=== PATIENT | female | born 1935 | race Caucasian/White ===

== ENCOUNTER 2016-08-24 11:53 | Emergency (ER) | payer MEDICARE, BC ==
[~2016-08-24 11:53] MED LIST: CIPRO PO; COUMADIN5 MG PO; DIOVAN PO; DIOVAN80 M1 PO; LORTAB 10/500 T1 TAB PO; LOVENOX SUBQ; PRAVASTATIN SOD20 MG PO; ZETIA PO
== END 2016-08-24 12:59 | disposition home or self-care (01) ==
LOC: CFTX 11:53
DX: S61.211A Laceration without foreign body of left index finger without damage to nail, initial encounter (principal); I10 Essential (primary) hypertension; Z86.718 Personal history of other venous thrombosis and embolism; Z86.711 Personal history of pulmonary embolism; Z87.891 Personal history of nicotine dependence; W26.8XXA Contact with other sharp object(s), not elsewhere classified, initial encounter
CPT/HCPCS: 12001; 90471; 90715; 99283

== ENCOUNTER → 2016-12-28 | Outpatient (CLI) | payer MEDICARE, BC ==
--- NOTE | ~2016-12-28 | CR184 ---
[facility] A Service of [facility] & [facility] RADIOLOGY TEXT RESULTS PATIENT: IMELDA AMARAL LOCATION: [facility] : 31 UNIT #: [id number] AGE: [address]: SHAHID HAMILTON MD SEX: F ORDER DR: [id number] [facility] [address] [place], [place] [address] [id number] O MR#: [id number] Acc #: [id number] NAME: IMELDA AMARAL : 1935 SEX: F STUDY DATE/TIME: 12/28/2016 10:32 UNIT: [facility] ROOM: STUDY DESCRIPTION: CR Lumbar Spine Min 4 Views Attending Physician: Shahid Hamilton M.D. Referring Physician: Shahid Hamilton M.D. Ordering Physician: Shahid Hamilton M.D. Primary Care Physician: Shahid Hamilton M.D. MEDICAL IMAGING REPORT This report is preliminary unless electronic signature is present EXAM Lumbar spine series 3 views 12/28/2016 COMPARISON 02/10/2015. HISTORY Low back pain radiating down both legs for 3 months. FINDINGS There is a grade 1 anterolisthesis of L4-L5. There is slight levoscoliosis. There is mild degenerative change and there is osteopenia. There is no fracture or acute abnormality. Anterolisthesis at L4-L5 is probably slightly increased since the prior study of January 2015. IMPRESSION Degenerative changes, including grade 1 anterolisthesis of L4-L5, slightly increased since the study of 02/10/2015. Dictated by... Giovanny Esquivel M.D. THIS IS AN ELECTRONICALLY VERIFIED REPORT Giovanny Esquivel M.D. at 12/31/2016 4:53 PM TEV/pcl TD: 12/28/2016 19:22 JOB #: [id number] MEDICAL IMAGING REPORT Page 1 of 1 COPY
== END | disposition home or self-care (01) ==
LOC: CRAD 10:07
DX: M54.30 Sciatica, unspecified side (principal); M47.896 Other spondylosis, lumbar region; M43.16 Spondylolisthesis, lumbar region
CPT/HCPCS: 72110

== ENCOUNTER → 2017-01-12 | Outpatient (CLI) | payer MEDICARE, BC ==
--- NOTE | ~2017-01-12 | US128 ---
[id number] [facility] [address] [place], [place] [address] [id number] O MR#: [id number] Acc #: [id number] NAME: IMELDA AMARAL : 1935 SEX: F STUDY DATE/TIME: 01/12/2017 13:00 UNIT: [facility] ROOM: STUDY DESCRIPTION: Thyroid Attending Physician: Gricelda Lara M.D. Referring Physician: Gricelda Lara M.D. Ordering Physician: Gricelda Lara M.D. Primary Care Physician: Gricelda Lara M.D. MEDICAL IMAGING REPORT This report is preliminary unless electronic signature is present EXAM Thyroid ultrasound 01/12/2017 HISTORY Thyromegaly on physical exam. FINDINGS Right lobe of the gland is normal to slightly diminished in overall size. There is minimally heterogeneous but no discrete nodule is seen. Vascularity is within normal limits. The left lobe of the gland is also normal to perhaps slightly diminished in overall size. Vascularity is normal. There is a small nodule at the extreme lower pole measuring about 8 x 6 x 8 mm. No other nodules are seen. IMPRESSION 1. The gland is overall normal to slightly diminished in volume. Vascularity is normal. 2. A single subcentimeter nodule is seen at the lower pole of the left lobe of the gland. No indication for tissue sampling at this time. Left lower pole nodule measures roughly 8 x 6 x 8 mm. Dictated by... Giovanny Esquivel M.D. THIS IS AN ELECTRONICALLY VERIFIED REPORT Giovanny Esquivel M.D. at 01/14/2017 4:06 PM TEV/rnr TD: 01/12/2017 17:54 JOB #: [id number] MEDICAL IMAGING REPORT Page 1 of 1 COPY
== END | disposition home or self-care (01) ==
LOC: CGUS 12:41
DX: E04.1 Nontoxic single thyroid nodule (principal)
CPT/HCPCS: 76536

== ENCOUNTER → 2017-01-13 | Outpatient (CLI) | payer MEDICARE, BC ==
--- NOTE | ~2017-01-13 | US5 ---
[facility] A Service of [facility] & [facility] RADIOLOGY TEXT RESULTS PATIENT: IMELDA AMARAL LOCATION: [facility] : 31 UNIT #: [id number] AGE: [address]: SHAHID HAMILTON MD SEX: F ORDER DR: [id number] [facility] [address] [place], [place] [address] [id number] O MR#: [id number] Acc #: [id number] NAME: IMELDA AMARAL : 1935 SEX: F STUDY DATE/TIME: 01/13/2017 8:08 UNIT: [facility] ROOM: STUDY DESCRIPTION: US Abdominal Complete Attending Physician: Shahid Hamilton M.D. Referring Physician: Shahid Hamilton M.D. Ordering Physician: Shahid Hamilton M.D. Primary Care Physician: Shahid Hamilton M.D. MEDICAL IMAGING REPORT This report is preliminary unless electronic signature is present EXAM Abdominal ultrasound complete, 01/13/2017. HISTORY Right upper quadrant and right lower quadrant abdominal pain for 1 month intermittently with palpable mass right lower quadrant on physical examination, 01/12/2017. FINDINGS The liver is homogeneous in echotexture and demonstrates no cystic or solid mass lesions. The intra and extrahepatic bile ducts are not dilated. The gallbladder is normal with no evidence of cholelithiasis, wall thickening or pericholecystic fluid. The common duct measures 2 mm. The pancreas is normal. 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 The visualized portions of the abdominal aorta and inferior vena cava are within normal limits. The kidneys are normal bilaterally. Ultrasound of the area of palpated abnormality in the right lower quadrant is obscured by excessive bowel gas. If clinical concern persists for a mass in this region recommend correlation with CT scan of the abdomen and pelvis with contrast. IMPRESSION 1. Normal gallbladder. 2. Surgical absence of the spleen. 3. The area of palpated abnormality in the right lower quadrant is obscured by excessive bowel gas. If clinical concern persists for a palpable mass in this region, correlation with CT scan of the abdomen and pelvis with contrast would be recommended. Dictated by... Brodie Baltazar M.D. [facility]. [facility] A Service of [facility] RADIOLOGY TEXT RESULTS PATIENT: IMELDA AMARAL LOCATION: [facility] : 31 UNIT #: [id number] AGE: [address]: SHAHID HAMILTON MD SEX: F ORDER DR: THIS IS AN ELECTRONICALLY VERIFIED REPORT Brodie Baltazar M.D. at 01/14/2017 7:55 AM DANILO/boni TD: 01/13/2017 15:42 JOB #: [id number] MEDICAL IMAGING REPORT Page 1 of 1 COPY
== END | disposition home or self-care (01) ==
LOC: CGUS 07:05
DX: R22.9 Localized swelling, mass and lump, unspecified (principal); R93.3 Abnormal findings on diagnostic imaging of other parts of digestive tract; Z90.49 Acquired absence of other specified parts of digestive tract
CPT/HCPCS: 76700